=== PATIENT | female | born 1980 | race Caucasian/White ===

== ENCOUNTER 2017-03-10 09:45 | Emergency (ER) | payer MEDICAID ==
[~2017-03-10] VITALS: Ht 167.6 cm; Wt 88.9 kg
[2017-03-10 12:58] LABS: CARBON DIOXIDE 26.4 mmol/L (21-32); CHLORIDE SERUM 104 mmol/L (98-107); CREATININE SERUM 0.8 mg/dL (0.6-1.0); GFR1 > 60 mL/min; GLUCOSE SERUM 106 mg/dL (74-106); POTASSIUM SERUM 3.9 mmol/L (3.5-5.1); SODIUM SERUM 137 mmol/L (136-145)
[2017-03-10 13:49] VITALS: BP 125/72
== END 2017-03-10 13:49 | disposition home or self-care (01) ==
LOC: ED 09:45
PROVIDERS: Emergency Medicine
DX: K29.00 Acute gastritis without bleeding (principal); K52.9 Noninfective gastroenteritis and colitis, unspecified; E86.0 Dehydration
CPT/HCPCS: J2405; J7030

== ENCOUNTER 2017-05-29 11:06 | Emergency (ER) | payer MEDICAID ==
[~2017-05-29] VITALS: Ht 160 cm; Wt 87.7 kg
[2017-05-29 13:57] VITALS: BP 115/67
== END 2017-05-29 13:15 | disposition home or self-care (01) ==
LOC: ED 11:06
DX: M72.2 Plantar fascial fibromatosis (principal)

== ENCOUNTER 2017-08-12 08:59 | Emergency (ER) | payer MEDICAID ==
[2017-08-12 10:27] VITALS: BP 125/76
== END 2017-08-12 10:27 | disposition home or self-care (01) ==
LOC: ED 08:59
DX: M72.2 Plantar fascial fibromatosis (principal)

== ENCOUNTER 2017-09-02 14:39 | Emergency (ER) | payer MEDICAID ==
[2017-09-02 14:53] VITALS: BP 121/72
== END 2017-09-02 15:55 | disposition home or self-care (01) ==
LOC: ED 14:39
DX: S16.1XXA Strain of muscle, fascia and tendon at neck level, initial encounter (principal); M54.9 Dorsalgia, unspecified; M54.30 Sciatica, unspecified side; X58.XXXA Exposure to other specified factors, initial encounter; Y93.89 Activity, other specified; Y99.8 Other external cause status; Y92.89 Other specified places as the place of occurrence of the external cause
CPT/HCPCS: J1885

== ENCOUNTER 2017-09-13 06:07 | Emergency (ER) | payer MEDICAID ==
[2017-09-13 06:55] LABS: CALCIUM 8.5 mg/dL (8.5-10.1); CARBON DIOXIDE 26.1 mmol/L (21-32); CHLORIDE SERUM 106 mmol/L (98-107); CREATININE SERUM 0.8 mg/dL (0.6-1.0); GFR1 > 60 mL/min; GLUCOSE SERUM 102 mg/dL (74-106); SODIUM SERUM 139 mmol/L (136-145)
[2017-09-13 06:56] LABS: UA SPECIFIC GRAVITY 1.025 (1.005-1.035); microscopic required? YES; urine erythrocyte 2+ (NEGATIVE)
[2017-09-13 06:57] LABS: BASOPHIL % 0.7 % (0-2); PLATELET COUNT 352 x10^3mcL (130-400); RED CELL DISTRIBUTION WIDTH 13.8 % (11.5-14.5)
[2017-09-13 07:00] LABS: ALKALINE PHOSPHATASE 85 U/L (46-116); ALT/SGPT 19 U/L (14-59); AST/SGOT 14 U/L (15-37); BILIRUBIN TOTAL 0.27 mg/dL (0.20-1.00); TOTAL PROTEIN, SERUM 7.2 g/dL (6.4-8.2)
[2017-09-13 07:03] LABS: ALBUMIN 3.1 g/dL (3.4-5.0)
[2017-09-13 08:02] VITALS: BP 138/80
== END 2017-09-13 08:02 | disposition home or self-care (01) ==
LOC: ED 06:07
PROVIDERS: Emergency Medicine
DX: R10.9 Unspecified abdominal pain (principal); M54.9 Dorsalgia, unspecified; I10 Essential (primary) hypertension
CPT/HCPCS: 36415; J3010; Q0092

== ENCOUNTER 2018-06-22 21:36 | Emergency (ER) | payer MEDICAID ==
[~2018-06-22] VITALS: Ht 160 cm; Wt 84.0 kg
[2018-06-22 21:42] VITALS: Ht 160 cm; Wt 84.0 kg
[2018-06-23 01:55] LABS: CARBON DIOXIDE 28.3 mmol/L (21-32); CHLORIDE SERUM 108 mmol/L (98-107); CREATININE SERUM 0.8 mg/dL (0.6-1.0); GFR1 > 60 mL/min; GLUCOSE SERUM 114 mg/dL (74-106); MAGNESIUM 2.3 mg/dL (1.8-2.4); POTASSIUM SERUM 3.5 mmol/L (3.5-5.1); SODIUM SERUM 143 mmol/L (136-145)
[2018-06-23 02:08] LABS: BASOPHIL % 0.8 % (0-2); PLATELET COUNT 297 x10^3mcL (130-400); RED CELL DISTRIBUTION WIDTH 14.4 % (11.5-14.5)
[2018-06-23 03:06] VITALS: BP 133/91
== END 2018-06-23 03:06 | disposition home or self-care (01) ==
LOC: ED 21:36
PROVIDERS: Emergency Medicine
DX: R25.2 Cramp and spasm (principal)
CPT/HCPCS: 36415; J1885

== ENCOUNTER 2018-09-19 21:58 | Emergency (ER) | payer MEDICAID ==
[~2018-09-19] VITALS: Ht 167.6 cm; Wt 88.5 kg
[2018-09-19 22:21] VITALS: Ht 167.6 cm; Wt 88.5 kg
[2018-09-20 00:06] VITALS: BP 118/77
== END 2018-09-20 00:07 | disposition home or self-care (01) ==
LOC: ED 21:58
DX: S80.01XA Contusion of right knee, initial encounter (principal); S81.031A Puncture wound without foreign body, right knee, initial encounter; F17.210 Nicotine dependence, cigarettes, uncomplicated; W18.39XA Other fall on same level, initial encounter; Y93.89 Activity, other specified; Y92.89 Other specified places as the place of occurrence of the external cause; Y99.8 Other external cause status
CPT/HCPCS: 90715; 99406

== ENCOUNTER 2018-09-28 09:36 | Emergency (ER) | payer MEDICAID ==
[~2018-09-28] VITALS: Ht 167.6 cm; Wt 87.5 kg
[2018-09-28 09:43] VITALS: BP 144/93; Ht 167.6 cm; Wt 87.5 kg
== END 2018-09-28 12:00 | disposition home or self-care (01) ==
LOC: ED 09:36
DX: M25.561 Pain in right knee (principal); M25.461 Effusion, right knee; Z98.890 Other specified postprocedural states
CPT/HCPCS: Q0092

== ENCOUNTER 2018-11-18 10:15 | Emergency (ER) | payer MEDICAID ==
[~2018-11-18] VITALS: Ht 172.7 cm; Wt 85.7 kg
[2018-11-18 10:19] VITALS: Ht 172.7 cm; Wt 85.7 kg
[2018-11-18 11:06] VITALS: BP 145/92
== END 2018-11-18 11:06 | disposition home or self-care (01) ==
LOC: ED 10:15
DX: S16.1XXA Strain of muscle, fascia and tendon at neck level, initial encounter (principal); X58.XXXA Exposure to other specified factors, initial encounter; Y93.89 Activity, other specified; Y92.89 Other specified places as the place of occurrence of the external cause; Y99.8 Other external cause status; M54.30 Sciatica, unspecified side; F17.210 Nicotine dependence, cigarettes, uncomplicated
CPT/HCPCS: J1885

== ENCOUNTER 2018-11-20 07:01 | Emergency (ER) | payer MEDICAID ==
[~2018-11-20] VITALS: Ht 160 cm; Wt 85.7 kg
[2018-11-20 07:06] VITALS: Ht 160 cm; Wt 85.7 kg
[2018-11-20 07:33] VITALS: BP 116/67
== END 2018-11-20 07:33 | disposition home or self-care (01) ==
LOC: ED 07:01
DX: M65.4 Radial styloid tenosynovitis [de Quervain] (principal)

== ENCOUNTER 2019-04-06 08:53 | Emergency (ER) | payer MEDICAID ==
[~2019-04-06] VITALS: Ht 243.8 cm; Wt 86.2 kg
[2019-04-06 09:00] VITALS: BP 135/72; Ht 243.8 cm; Wt 86.2 kg
== END 2019-04-06 10:03 | disposition home or self-care (01) ==
LOC: ED 08:53
DX: S44.31XA Injury of axillary nerve, right arm, initial encounter (principal); M54.30 Sciatica, unspecified side; X58.XXXA Exposure to other specified factors, initial encounter; Y93.89 Activity, other specified; Y92.89 Other specified places as the place of occurrence of the external cause; Y99.8 Other external cause status

== ENCOUNTER 2020-01-24 14:27 | Emergency (ER) | payer MEDICAID ==
[~2020-01-24] VITALS: Ht 157.5 cm; Wt 85.7 kg
[2020-01-24 14:58] VITALS: Ht 157.5 cm; Wt 85.7 kg
[2020-01-24 16:59] VITALS: BP 125/80
== END 2020-01-24 16:59 | disposition home or self-care (01) ==
LOC: ED 14:27
DX: N30.90 Cystitis, unspecified without hematuria (principal); M54.30 Sciatica, unspecified side

== ENCOUNTER 2020-05-24 09:44 | Emergency (ER) | payer OTHER, MEDICAID ==
[~2020-05-24] VITALS: Ht 162.6 cm; Wt 88.9 kg
[2020-05-24 09:54] VITALS: Ht 162.6 cm; Wt 88.9 kg
[2020-05-24 13:14] VITALS: BP 124/73
== END 2020-05-24 13:14 | disposition home or self-care (01) ==
LOC: ED 09:44
DX: S16.1XXA Strain of muscle, fascia and tendon at neck level, initial encounter (principal); S83.92XA Sprain of unspecified site of left knee, initial encounter; M54.5 Low back pain; V49.49XA Driver injured in collision with other motor vehicles in traffic accident, initial encounter; Y93.I9 Activity, other involving external motion; Y92.488 Other paved roadways as the place of occurrence of the external cause; Y99.8 Other external cause status

== ENCOUNTER 2020-11-13 16:11 | Emergency (ER) | payer MEDICAID | END 2020-11-13 17:33 | disposition left against medical advice (07) | LOC: ED 16:11 | DX: Z53.21 Procedure and treatment not carried out due to patient leaving prior to being seen by health care provider (principal) ==